=== PATIENT | male | born 1940 | race African-American/Black ===

== ENCOUNTER 2020-11-06 13:47 | Inpatient (IN) ==
[2020-11-06 14:47] LABS: ABG Base Excess -0.2 MMOL/L (-2.5-2.5); ABG Oxygen Saturation 86.6 % (95-100); ABG PCO2 44.7 MM HG (35-48); ABG PH 7.363 (7.35-7.45); ABG PO2 56.9 MM HG (80-95)
[2020-11-06 14:48] LABS: Hematocrit 34.7 VOL% (42.0-52.0); Hemoglobin 11.4 GM/DL (14.0-18.0); Immature Granulocytes % 0.4 %; Immature Granulocytes Absolute 0.03 #; Lymphocytes % 13.2 % (21.2-54.2); Mean Corpuscular HGB Conc 32.9 GM/DL (32-36); Mean Corpuscular Volume 97.7 FL (87-102); Mean Platelet Volume 10.7 FL (9.6-12.0); Monocytes % 5.1 % (1.7-12.7); NRBC # 0.06 10*3/uL; Neutrophils % 81.3 % (38.7-73.9); Platelet Count 178 T/CUMM (130-400); Red Blood Count 3.55 MC/CUMM (3.8-5.5); Red Cell Distribution Width 17.1 % (9.3-17.3); White Blood Count 7.8 T/CUMM (4-12)
[2020-11-06 15:09] LABS: Albumin 2.8 G/DL (3.4-5.0); Bilirubin,Total 4.3 MG/DL (0.2-1.0); Calcium 8.8 MG/DL (8.5-10.1); Osmolality,Calculated 291.4 MOS/KG (273-304); Potassium 5.6 MMOL/L (3.5-5.1); Total Protein 6.2 G/DL (6.4-8.3)
[2020-11-06 15:10] LABS: Atypical Lymphocytes Few; Lymphocytes 13 % (20-55); Macrocytosis 1+; Nucleated Red Blood Cells 2 (0-5); Segmented Neutrophils 82 % (50-85); Total Cells Counted 100
[2020-11-06 15:11] LABS: Platelet Estimate Normal
[2020-11-06 15:12] LABS: Howell-Jolly Bodies 1+; Hypochromasia Slight
[2020-11-06 15:13] LABS: Acanthocytes 2+; Polychromasia Slight; Schistocytes 1+
[2020-11-06 15:14] LABS: Anisocytosis 2+; Poikilocytosis 2+
[2020-11-06 15:33] LABS: Ferritin 1167.6 ng/ml (26-388)
[2020-11-06] MEDS ORDERED: AZITHROMYCIN INJ 500 MG in SODIUM CHLORIDE 0.9% 250 ML IV STA (15:56)
[2020-11-06] MEDS ORDERED: SODIUM CHLORIDE 0.9% 1,000 ML IV STA (15:56)
[2020-11-06] MEDS ORDERED: DEXAMETHASONE 4 MG/1 ML VIAL IV STA (15:57)
[2020-11-06] MEDS ORDERED: cefTRIAXone 1,000 MG in SODIUM CHLORIDE 0.9% 100 ML IV STA (15:57)
[2020-11-06] MEDS ORDERED: GLUCAGON 1 MG VIAL IM PRN (16:10)
[2020-11-06] MEDS ORDERED: DEXTROSE 50% 25 GM/50 ML VIAL IV PRN (16:10)
[2020-11-06] MEDS ORDERED: ONDANSETRON 4 MG/2 ML VIAL IV PRN (16:10)
[2020-11-06] MEDS ORDERED: ACETAMINOPHEN 325 MG TABLET PO PRN (16:10)
[2020-11-06] MEDS: SODIUM CHLORIDE 0.9% 1,000 ML IV SCH (17:40)
[2020-11-06] MEDS: DOCUSATE SODIUM 100 MG CAPSULE PO SCH ×2 (21:02→21:58)
[2020-11-06] MEDS: METOPROLOL TARTRATE 50 MG TABLET PO SCH (21:02)
[2020-11-06] MEDS: BENZONATATE 100 MG CAPSULE PO SCH (21:02)
[2020-11-06] MEDS: DEXAMETHASONE 4 MG/1 ML VIAL IV SCH (21:05)
[2020-11-06] MEDS: MORPHINE 4 MG/1 ML VIAL IV PRN (21:08)
[2020-11-07] MEDS: SODIUM CHLORIDE 0.9% 1,000 ML IV SCH ×4 (00:55→22:30)
[2020-11-07] MEDS: DEXAMETHASONE 4 MG/1 ML VIAL IV SCH ×4 (02:12→20:30)
[2020-11-07 05:24] LABS: Hematocrit 35.7 VOL% (42.0-52.0); Hemoglobin 11.4 GM/DL (14.0-18.0); Immature Granulocytes % 0.6 %; Immature Granulocytes Absolute 0.03 #; Lymphocytes # 0.8 10*3/uL (1.4-4.0); Lymphocytes % 14.6 % (21.2-54.2); Mean Corpuscular HGB Conc 31.9 GM/DL (32-36); Mean Corpuscular Volume 98.9 FL (87-102); Mean Platelet Volume 11.3 FL (9.6-12.0); Monocytes % 3.4 % (1.7-12.7); NRBC # 0.04 10*3/uL; Neutrophils % 81.4 % (38.7-73.9); Platelet Count 183 T/CUMM (130-400); Red Blood Count 3.61 MC/CUMM (3.8-5.5); Red Cell Distribution Width 17.5 % (9.3-17.3); White Blood Count 5.3 T/CUMM (4-12)
[2020-11-07 05:50] LABS: Band Neutrophils 2 % (0-10); Lymphocytes 14 % (20-55); Nucleated Red Blood Cells 1 (0-5); Platelet Estimate Normal; Segmented Neutrophils 82 % (50-85); Total Cells Counted 100
[2020-11-07 05:51] LABS: Howell-Jolly Bodies Few; Hypochromasia Slight
[2020-11-07 06:02] LABS: Albumin 2.3 G/DL (3.4-5.0); Bilirubin,Total 3.8 MG/DL (0.2-1.0); Calcium 8.9 MG/DL (8.5-10.1); Osmolality,Calculated 290.8 MOS/KG (273-304); Potassium 5.7 MMOL/L (3.5-5.1); Total Protein 6.4 G/DL (6.4-8.3)
[2020-11-07] MEDS: cefTRIAXone 500 MG in SYRINGE 1 EACH IV SCH (08:17)
[2020-11-07] MEDS: BENZONATATE 100 MG CAPSULE PO SCH ×3 (08:18→20:30)
[2020-11-07] MEDS: CLOPIDOGREL 75 MG TABLET PO SCH (08:18)
[2020-11-07] MEDS: ASPIRIN EC 81 MG TABLET PO SCH (08:18)
[2020-11-07] MEDS: DOCUSATE SODIUM 100 MG CAPSULE PO SCH ×3 (08:18→20:30)
[2020-11-07] MEDS: PANTOPRAZOLE 40 MG TABLET PO SCH (08:19)
[2020-11-07] MEDS: METOPROLOL TARTRATE 50 MG TABLET PO SCH (08:19)
[2020-11-07] MEDS: LORATADINE 10 MG TABLET PO SCH (08:19)
[2020-11-07] MEDS ORDERED: SODIUM POLYSTYRENE SULFATE 15 GM/60 ML BOTTLE PO STA (08:25)
[2020-11-07 10:53] LABS: Troponin I 0.153 NG/ML (0.00-0.045)
[2020-11-07] MEDS: ASCORBIC ACID 500 MG TABLET PO SCH (12:31)
[2020-11-07] MEDS: CHOLECALCIFEROL 1,000 UNIT TABLET PO SCH (12:31)
[2020-11-07] MEDS: ZINC GLUCONATE 50 MG TABLET PO SCH (12:31)
[2020-11-07] MEDS: azaTHIOprine 50 MG TABLET PO SCH (14:31)
[2020-11-07 17:22] LABS: Bilirubin,Urine Negative (Negative); Blood, Urine Small mg/dL (Negative); Glucose,Urine (UA) Negative (Negative); Ketones,Urine Negative (Negative); Mucus,Urine Occasional /LPF (Occasional); Nitrite,Urine Negative (Negative); Protein,Urine 100 MG/DL; RBC,Urine 2 /HPF (0-4); Squamous Epithelial Cell,Urine Occasional /HPF (0-10); Urine Appearance Slightly Hazy (Clear); Urine Color Amber (Yellow); Urine Specific Gravity 1.013 (1.001-1.035); WBC,Urine 3 /HPF (0-6)
[2020-11-07] MEDS: METOPROLOL SUCCINATE XL 50 MG TABLET PO SCH (20:30)
[2020-11-07] MEDS: LIDOCAINE 5% PATCH TRANSDERM SCH (20:30)
[2020-11-07] MEDS: ENOXAPARIN 80 MG/0.8 ML SYRINGE SUBCUT SCH (20:30)
[2020-11-07] MEDS: AZITHROMYCIN INJ 500 MG in SODIUM CHLORIDE 0.9% 250 ML IV SCH (20:32)
[2020-11-08] MEDS: SODIUM CHLORIDE 0.9% 1,000 ML IV SCH ×2 (02:27→13:10)
[2020-11-08] MEDS: DEXAMETHASONE 4 MG/1 ML VIAL IV SCH ×2 (02:28→09:03)
[2020-11-08 06:41] LABS: Hematocrit 32.4 VOL% (42.0-52.0); Hemoglobin 10.8 GM/DL (14.0-18.0); Immature Granulocytes % 0.6 %; Immature Granulocytes Absolute 0.06 #; Lymphocytes # 0.7 10*3/uL (1.4-4.0); Lymphocytes % 6.5 % (21.2-54.2); Mean Corpuscular HGB Conc 33.3 GM/DL (32-36); Mean Corpuscular Volume 97.6 FL (87-102); Mean Platelet Volume 10.9 FL (9.6-12.0); Monocytes % 3.3 % (1.7-12.7); NRBC # 0.11 10*3/uL; Neutrophils % 89.6 % (38.7-73.9); Platelet Count 204 T/CUMM (130-400); Red Blood Count 3.32 MC/CUMM (3.8-5.5); Red Cell Distribution Width 17.3 % (9.3-17.3); White Blood Count 10.4 T/CUMM (4-12)
[2020-11-08 07:05] LABS: Albumin 2.4 G/DL (3.4-5.0); Bilirubin,Total 4.9 MG/DL (0.2-1.0); Calcium 8.7 MG/DL (8.5-10.1); Osmolality,Calculated 301.1 MOS/KG (273-304); Total Protein 6.5 G/DL (6.4-8.3)
[2020-11-08] MEDS ORDERED: POLYVINYL ALCOHOL 1.4% OPH SOLN 15 ML BOTTLE BOTH EYES PRN (08:49)
[2020-11-08] MEDS ORDERED: ERGOCALCIFEROL 50,000 UNIT CAPSULE PO SCH (09:00)
[2020-11-08] MEDS: cefTRIAXone 500 MG in SYRINGE 1 EACH IV SCH (09:04)
[2020-11-08] MEDS: DOCUSATE SODIUM 100 MG CAPSULE PO SCH ×2 (09:05→20:29)
[2020-11-08] MEDS: METOPROLOL SUCCINATE XL 50 MG TABLET PO SCH ×2 (09:06→20:31)
[2020-11-08] MEDS: CLOPIDOGREL 75 MG TABLET PO SCH (09:06)
[2020-11-08] MEDS: CHOLECALCIFEROL 1,000 UNIT TABLET PO SCH (09:06)
[2020-11-08] MEDS: ASCORBIC ACID 500 MG TABLET PO SCH (09:06)
[2020-11-08] MEDS: ZINC GLUCONATE 50 MG TABLET PO SCH (09:06)
[2020-11-08] MEDS: ASPIRIN EC 81 MG TABLET PO SCH (09:06)
[2020-11-08] MEDS: PANTOPRAZOLE 40 MG TABLET PO SCH (09:07)
[2020-11-08] MEDS: BENZONATATE 100 MG CAPSULE PO SCH ×3 (09:07→20:29)
[2020-11-08] MEDS: azaTHIOprine 50 MG TABLET PO SCH (09:07)
[2020-11-08] MEDS: LORATADINE 10 MG TABLET PO SCH (09:07)
[2020-11-08] MEDS: LIDOCAINE 5% PATCH TRANSDERM SCH (09:08)
[2020-11-08 09:21] LABS: Band Neutrophils 3 % (0-10); Lymphocytes 5 % (20-55); Platelet Estimate Normal; Schistocytes Slight; Segmented Neutrophils 80 % (50-85); Total Cells Counted 100
[2020-11-08 09:23] LABS: Burr Cells Few
[2020-11-08 09:25] LABS: Acanthocytes 1+
[2020-11-08 11:43] LABS: Bilirubin,Direct 3.35 MG/DL (0.0-0.20); Bilirubin,Indirect 0.3 MG/DL (0.0-1.0); Bilirubin,Total 3.6 MG/DL (0.2-1.0)
[2020-11-08 13:06] LABS: Hepatitis B Core IgM Quant 0.11 Index; Hepatitis B Surface Ag Quant < 0.10 Index; Hepatitis B Surface Ag Result Negative (Negative); Hepatitis C Virus Ab Quant 0.09 Index; Hepatitis C Virus Ab Result Negative (Negative)
[2020-11-08] MEDS: AZITHROMYCIN INJ 500 MG in SODIUM CHLORIDE 0.9% 250 ML IV SCH (20:29)
[2020-11-08] MEDS: ENOXAPARIN 80 MG/0.8 ML SYRINGE SUBCUT SCH (20:29)
[2020-11-09] MEDS ORDERED: hydrALAZINE 20 MG/1 ML VIAL IV PRN (00:14)
[2020-11-09] MEDS: MORPHINE 4 MG/1 ML VIAL IV PRN (00:59)
[2020-11-09] MEDS: SODIUM CHLORIDE 0.9% 1,000 ML IV SCH ×3 (01:07→23:02)
[2020-11-09 06:46] LABS: Basophils % 0.1 % (0.0-0.8); Immature Granulocytes % 1.1 %; Lymphocytes # 0.9 10*3/uL (1.4-4.0); Lymphocytes % 9.6 % (21.2-54.2); Mean Corpuscular HGB Conc 32.4 GM/DL (32-36); Mean Platelet Volume 11.8 FL (9.6-12.0); Monocytes % 4.4 % (1.7-12.7); Neutrophils % 84.8 % (38.7-73.9); Platelet Count 229 T/CUMM (130-400); Red Cell Distribution Width 17.5 % (9.3-17.3); White Blood Count 9.3 T/CUMM (4-12)
[2020-11-09 07:21] LABS: Albumin 2.6 G/DL (3.4-5.0); Bilirubin,Total 4.6 MG/DL (0.2-1.0); Calcium 9.1 MG/DL (8.5-10.1); Osmolality,Calculated 298.8 MOS/KG (273-304); Potassium 4.9 MMOL/L (3.5-5.1); Total Protein 7.4 G/DL (6.4-8.3)
[2020-11-09 07:45] LABS: Troponin I 0.259 NG/ML (0.00-0.045)
[2020-11-09 07:51] LABS: Platelet Estimate Normal
[2020-11-09 07:52] LABS: Anisocytosis 3+; Burr Cells 2+; Poikilocytosis 2+
[2020-11-09 07:53] LABS: Macrocytosis 1+; Ovalocytes Few; Schistocytes Few; Spherocytes Few
[2020-11-09] MEDS: DOCUSATE SODIUM 100 MG CAPSULE PO SCH ×2 (09:07→23:02)
[2020-11-09] MEDS: LORATADINE 10 MG TABLET PO SCH (09:07)
[2020-11-09] MEDS: CLOPIDOGREL 75 MG TABLET PO SCH (09:08)
[2020-11-09] MEDS: azaTHIOprine 50 MG TABLET PO SCH (09:08)
[2020-11-09] MEDS: BENZONATATE 100 MG CAPSULE PO SCH ×3 (09:10→23:02)
[2020-11-09] MEDS: ASCORBIC ACID 500 MG TABLET PO SCH (09:10)
[2020-11-09] MEDS: amLODIPine 5 MG TABLET PO SCH (09:10)
[2020-11-09] MEDS: METOPROLOL SUCCINATE XL 50 MG TABLET PO SCH ×2 (09:10→23:02)
[2020-11-09] MEDS: LIDOCAINE 5% PATCH TRANSDERM SCH (10:03)
[2020-11-09] MEDS: ASPIRIN EC 81 MG TABLET PO SCH (10:03)
[2020-11-09] MEDS: PANTOPRAZOLE 40 MG TABLET PO SCH (10:04)
[2020-11-09] MEDS: CHOLECALCIFEROL 1,000 UNIT TABLET PO SCH (10:04)
[2020-11-09] MEDS: ZINC GLUCONATE 50 MG TABLET PO SCH (10:04)
[2020-11-09] MEDS: DEXAMETHASONE 4 MG/1 ML VIAL IV SCH (10:09)
[2020-11-09] MEDS: cefTRIAXone 500 MG in SYRINGE 1 EACH IV SCH (10:10)
[2020-11-09] MEDS: AZITHROMYCIN INJ 500 MG in SODIUM CHLORIDE 0.9% 250 ML IV SCH (23:00)
[2020-11-09] MEDS: ENOXAPARIN 80 MG/0.8 ML SYRINGE SUBCUT SCH (23:01)
[2020-11-10] MEDS: ZINC GLUCONATE 50 MG TABLET PO SCH (09:52)
[2020-11-10] MEDS: PANTOPRAZOLE 40 MG TABLET PO SCH (09:52)
[2020-11-10] MEDS: ASCORBIC ACID 500 MG TABLET PO SCH (09:52)
[2020-11-10] MEDS: CHOLECALCIFEROL 1,000 UNIT TABLET PO SCH (09:52)
[2020-11-10] MEDS: azaTHIOprine 50 MG TABLET PO SCH (09:52)
[2020-11-10] MEDS: CLOPIDOGREL 75 MG TABLET PO SCH (09:53)
[2020-11-10] MEDS: BENZONATATE 100 MG CAPSULE PO SCH ×3 (09:53→20:50)
[2020-11-10] MEDS: DEXAMETHASONE 4 MG/1 ML VIAL IV SCH (09:53)
[2020-11-10] MEDS: DOCUSATE SODIUM 100 MG CAPSULE PO SCH ×2 (09:53→20:50)
[2020-11-10] MEDS: LORATADINE 10 MG TABLET PO SCH (09:53)
[2020-11-10] MEDS: amLODIPine 5 MG TABLET PO SCH (09:53)
[2020-11-10] MEDS: METOPROLOL SUCCINATE XL 50 MG TABLET PO SCH ×2 (09:53→20:51)
[2020-11-10] MEDS: NYSTATIN 500,000 UNIT/5 ML UDCUP SWISH/SWAL SCH ×4 (09:53→20:51)
[2020-11-10] MEDS: cefTRIAXone 500 MG in SYRINGE 1 EACH IV SCH (09:56)
[2020-11-10] MEDS: ASPIRIN EC 81 MG TABLET PO SCH (09:57)
[2020-11-10] MEDS: LIDOCAINE 5% PATCH TRANSDERM SCH (09:57)
[2020-11-10 10:38] LABS: Potassium 4.9 MMOL/L (3.5-5.1)
[2020-11-10 10:40] LABS: Calcium 9.3 MG/DL (8.5-10.1)
[2020-11-10 10:42] LABS: Albumin 2.3 G/DL (3.4-5.0)
[2020-11-10 10:47] LABS: Bilirubin,Total 5.6 MG/DL (0.2-1.0); Total Protein 6.6 G/DL (6.4-8.3)
[2020-11-10] MEDS: AZITHROMYCIN INJ 500 MG in SODIUM CHLORIDE 0.9% 250 ML IV SCH (20:50)
[2020-11-10] MEDS: ENOXAPARIN 80 MG/0.8 ML SYRINGE SUBCUT SCH (20:51)
[2020-11-11 07:03] LABS: Albumin 2.1 G/DL (3.4-5.0); Bilirubin,Total 6.1 MG/DL (0.2-1.0); Calcium 9.2 MG/DL (8.5-10.1); Osmolality,Calculated 293.3 MOS/KG (273-304); Potassium 4.8 MMOL/L (3.5-5.1); Total Protein 6.3 G/DL (6.4-8.3)
[2020-11-11] MEDS: azaTHIOprine 50 MG TABLET PO SCH (08:53)
[2020-11-11] MEDS: DEXAMETHASONE 4 MG/1 ML VIAL IV SCH (08:53)
[2020-11-11] MEDS: DOCUSATE SODIUM 100 MG CAPSULE PO SCH ×2 (08:53→20:26)
[2020-11-11] MEDS: LORATADINE 10 MG TABLET PO SCH (08:53)
[2020-11-11] MEDS: ASPIRIN EC 81 MG TABLET PO SCH (08:53)
[2020-11-11] MEDS: NYSTATIN 500,000 UNIT/5 ML UDCUP SWISH/SWAL SCH ×4 (08:54→20:28)
[2020-11-11] MEDS: amLODIPine 10 MG TABLET PO SCH (08:54)
[2020-11-11] MEDS: PANTOPRAZOLE 40 MG TABLET PO SCH (08:55)
[2020-11-11] MEDS: METOPROLOL SUCCINATE XL 50 MG TABLET PO SCH ×2 (08:55→20:28)
[2020-11-11] MEDS: BENZONATATE 100 MG CAPSULE PO SCH ×3 (08:55→20:27)
[2020-11-11] MEDS: CLOPIDOGREL 75 MG TABLET PO SCH (08:55)
[2020-11-11] MEDS: cefTRIAXone 500 MG in SYRINGE 1 EACH IV SCH (08:55)
[2020-11-11] MEDS: CHOLECALCIFEROL 1,000 UNIT TABLET PO SCH (08:56)
[2020-11-11] MEDS: ASCORBIC ACID 500 MG TABLET PO SCH (08:56)
[2020-11-11] MEDS: ZINC GLUCONATE 50 MG TABLET PO SCH (08:56)
[2020-11-11] MEDS ORDERED: SODIUM CHLORIDE 0.9% 1,000 ML IV PRN ×2 (09:44→09:52)
[2020-11-11] MEDS: LIDOCAINE 5% PATCH TRANSDERM SCH (10:53)
[2020-11-11] MEDS: SODIUM CHLORIDE 0.9% 1,000 ML IV SCH ×2 (15:59→16:00)
[2020-11-11] MEDS: ENOXAPARIN 80 MG/0.8 ML SYRINGE SUBCUT SCH (20:27)
[2020-11-11] MEDS: AZITHROMYCIN INJ 500 MG in SODIUM CHLORIDE 0.9% 250 ML IV SCH (20:28)
[2020-11-12 05:15] LABS: Eosinophils % 0.2 % (0.00-10.9); Hematocrit 32.9 VOL% (42.0-52.0); Immature Granulocytes % 0.5 %; Immature Granulocytes Absolute 0.03 #; Lymphocytes # 0.8 10*3/uL (1.4-4.0); Lymphocytes % 12.3 % (21.2-54.2); Mean Corpuscular HGB Conc 33.4 GM/DL (32-36); Mean Corpuscular Volume 95.6 FL (87-102); Mean Platelet Volume 11.4 FL (9.6-12.0); Monocytes % 6.8 % (1.7-12.7); NRBC # 0.06 10*3/uL; Neutrophils % 80.2 % (38.7-73.9); Platelet Count 250 T/CUMM (130-400); Red Blood Count 3.44 MC/CUMM (3.8-5.5); Red Cell Distribution Width 16.8 % (9.3-17.3); White Blood Count 6.2 T/CUMM (4-12)
[2020-11-12 05:55] LABS: Calcium 9.4 MG/DL (8.5-10.1); Osmolality,Calculated 289.3 MOS/KG (273-304); Potassium 4.4 MMOL/L (3.5-5.1)
[2020-11-12 06:06] LABS: % Iron Saturation 33.8 % (18-50); Ferritin 932.2 ng/ml (26-388)
[2020-11-12] MEDS: LIDOCAINE 5% PATCH TRANSDERM SCH (08:34)
[2020-11-12] MEDS: cefTRIAXone 500 MG in SYRINGE 1 EACH IV SCH (08:35)
[2020-11-12] MEDS: ZINC GLUCONATE 50 MG TABLET PO SCH (08:36)
[2020-11-12] MEDS: METOPROLOL SUCCINATE XL 50 MG TABLET PO SCH ×2 (08:36→21:39)
[2020-11-12] MEDS: DEXAMETHASONE 4 MG/1 ML VIAL IV SCH (08:36)
[2020-11-12] MEDS: LORATADINE 10 MG TABLET PO SCH (08:37)
[2020-11-12] MEDS: CHOLECALCIFEROL 1,000 UNIT TABLET PO SCH (08:37)
[2020-11-12] MEDS: NYSTATIN 500,000 UNIT/5 ML UDCUP SWISH/SWAL SCH ×4 (08:37→21:39)
[2020-11-12] MEDS: DOCUSATE SODIUM 100 MG CAPSULE PO SCH ×2 (08:37→21:38)
[2020-11-12] MEDS: ASPIRIN EC 81 MG TABLET PO SCH (08:37)
[2020-11-12] MEDS: CLOPIDOGREL 75 MG TABLET PO SCH (08:37)
[2020-11-12] MEDS: ASCORBIC ACID 500 MG TABLET PO SCH (08:37)
[2020-11-12] MEDS: azaTHIOprine 50 MG TABLET PO SCH (08:37)
[2020-11-12] MEDS: BENZONATATE 100 MG CAPSULE PO SCH ×3 (08:37→21:39)
[2020-11-12] MEDS: amLODIPine 10 MG TABLET PO SCH (08:37)
[2020-11-12] MEDS: PANTOPRAZOLE 40 MG TABLET PO SCH (08:37)
[2020-11-12] MEDS: ENOXAPARIN 80 MG/0.8 ML SYRINGE SUBCUT SCH (21:39)
[2020-11-12] MEDS: AZITHROMYCIN INJ 500 MG in SODIUM CHLORIDE 0.9% 250 ML IV SCH (21:39)
[2020-11-13 06:53] LABS: Calcium 9.3 MG/DL (8.5-10.1); Osmolality,Calculated 287.3 MOS/KG (273-304); Potassium 4.1 MMOL/L (3.5-5.1)
[2020-11-13] MEDS: cefTRIAXone 500 MG in SYRINGE 1 EACH IV SCH (08:11)
[2020-11-13] MEDS: LORATADINE 10 MG TABLET PO SCH (08:11)
[2020-11-13] MEDS: CLOPIDOGREL 75 MG TABLET PO SCH (08:11)
[2020-11-13] MEDS: DEXAMETHASONE 4 MG/1 ML VIAL IV SCH (08:11)
[2020-11-13] MEDS: ASCORBIC ACID 500 MG TABLET PO SCH (08:12)
[2020-11-13] MEDS: ASPIRIN EC 81 MG TABLET PO SCH (08:12)
[2020-11-13] MEDS: amLODIPine 10 MG TABLET PO SCH (08:12)
[2020-11-13] MEDS: azaTHIOprine 50 MG TABLET PO SCH (08:12)
[2020-11-13] MEDS: DOCUSATE SODIUM 100 MG CAPSULE PO SCH ×2 (08:12→20:29)
[2020-11-13] MEDS: PANTOPRAZOLE 40 MG TABLET PO SCH (08:12)
[2020-11-13] MEDS: NYSTATIN 500,000 UNIT/5 ML UDCUP SWISH/SWAL SCH ×4 (08:12→20:29)
[2020-11-13] MEDS: BENZONATATE 100 MG CAPSULE PO SCH ×3 (08:12→20:29)
[2020-11-13] MEDS: CHOLECALCIFEROL 1,000 UNIT TABLET PO SCH (08:12)
[2020-11-13] MEDS: ZINC GLUCONATE 50 MG TABLET PO SCH (08:12)
[2020-11-13] MEDS: METOPROLOL SUCCINATE XL 50 MG TABLET PO SCH ×2 (08:13→20:29)
[2020-11-13] MEDS: LIDOCAINE 5% PATCH TRANSDERM SCH (08:15)
[2020-11-13] MEDS: SODIUM CHLORIDE 0.9% 1,000 ML IV SCH (13:07)
[2020-11-13 13:33] LABS: Bacteria,Urine Occasional /HPF (Few); Bilirubin,Urine Negative (Negative); Blood, Urine Small mg/dL (Negative); Glucose,Urine (UA) Negative (Negative); Ketones,Urine Negative (Negative); Mucus,Urine Occasional /LPF (Occasional); Nitrite,Urine Negative (Negative); Protein,Urine 100 MG/DL; RBC,Urine <1 /HPF (0-4); Squamous Epithelial Cell,Urine Occasional /HPF (0-10); Urine Appearance CLEAR (Clear); Urine Color Amber (Yellow); Urine Specific Gravity 1.014 (1.001-1.035)
[2020-11-13] MEDS: AZITHROMYCIN INJ 500 MG in SODIUM CHLORIDE 0.9% 250 ML IV SCH (20:29)
[2020-11-13] MEDS: ENOXAPARIN 80 MG/0.8 ML SYRINGE SUBCUT SCH (20:29)
[2020-11-13] MEDS: hydrALAZINE 20 MG/1 ML VIAL IV PRN (20:30)
[2020-11-14] MEDS: hydrALAZINE 20 MG/1 ML VIAL IV PRN ×2 (05:16→20:35)
[2020-11-14 06:36] LABS: Calcium 9.6 MG/DL (8.5-10.1); Osmolality,Calculated 289.1 MOS/KG (273-304)
[2020-11-14 06:41] LABS: Albumin 2.3 G/DL (3.4-5.0); Bilirubin,Direct 5.6 MG/DL (0.0-0.20); Bilirubin,Indirect 1.1 MG/DL (0.0-1.0); Bilirubin,Total 6.7 MG/DL (0.2-1.0); Total Protein 5.9 G/DL (6.4-8.3)
[2020-11-14] MEDS: CHOLECALCIFEROL 1,000 UNIT TABLET PO SCH (08:09)
[2020-11-14] MEDS: ZINC GLUCONATE 50 MG TABLET PO SCH (08:09)
[2020-11-14] MEDS: METOPROLOL SUCCINATE XL 50 MG TABLET PO SCH ×2 (08:10→20:34)
[2020-11-14] MEDS: LORATADINE 10 MG TABLET PO SCH (08:10)
[2020-11-14] MEDS: ASCORBIC ACID 500 MG TABLET PO SCH (08:10)
[2020-11-14] MEDS: amLODIPine 10 MG TABLET PO SCH (08:10)
[2020-11-14] MEDS: BENZONATATE 100 MG CAPSULE PO SCH ×3 (08:10→20:33)
[2020-11-14] MEDS: DOCUSATE SODIUM 100 MG CAPSULE PO SCH ×2 (08:10→20:33)
[2020-11-14] MEDS: NYSTATIN 500,000 UNIT/5 ML UDCUP SWISH/SWAL SCH ×4 (08:10→20:33)
[2020-11-14] MEDS: ASPIRIN EC 81 MG TABLET PO SCH (08:11)
[2020-11-14] MEDS: DEXAMETHASONE 4 MG/1 ML VIAL IV SCH (08:11)
[2020-11-14] MEDS: azaTHIOprine 50 MG TABLET PO SCH (08:11)
[2020-11-14] MEDS: CLOPIDOGREL 75 MG TABLET PO SCH (08:11)
[2020-11-14] MEDS: cefTRIAXone 500 MG in SYRINGE 1 EACH IV SCH (08:11)
[2020-11-14] MEDS: LIDOCAINE 5% PATCH TRANSDERM SCH (08:12)
[2020-11-14] MEDS: PANTOPRAZOLE 40 MG TABLET PO SCH (08:14)
[2020-11-14] MEDS: SODIUM CHLORIDE 0.9% 1,000 ML IV SCH (14:43)
[2020-11-14] MEDS: ENOXAPARIN 80 MG/0.8 ML SYRINGE SUBCUT SCH (20:33)
[2020-11-14] MEDS: AZITHROMYCIN INJ 500 MG in SODIUM CHLORIDE 0.9% 250 ML IV SCH (20:34)
[2020-11-14] MEDS ORDERED: ALPRAZolam 0.25 MG TABLET PO PRN (20:35)
[2020-11-15 06:02] LABS: Basophils % 0.1 % (0.0-0.8); Eosinophils % 0.4 % (0.00-10.9); Hemoglobin 9.8 GM/DL (14.0-18.0); Immature Granulocytes % 0.7 %; Immature Granulocytes Absolute 0.06 #; Lymphocytes # 1.2 10*3/uL (1.4-4.0); Lymphocytes % 12.9 % (21.2-54.2); Mean Corpuscular HGB Conc 33.8 GM/DL (32-36); Mean Corpuscular Volume 93.9 FL (87-102); Mean Platelet Volume 11.2 FL (9.6-12.0); Monocytes % 5.6 % (1.7-12.7); NRBC # 0.07 10*3/uL; Neutrophils % 80.3 % (38.7-73.9); Platelet Count 333 T/CUMM (130-400); Red Blood Count 3.09 MC/CUMM (3.8-5.5); Red Cell Distribution Width 16.6 % (9.3-17.3); White Blood Count 9.1 T/CUMM (4-12)
[2020-11-15] MEDS: ASPIRIN EC 81 MG TABLET PO SCH (09:54)
[2020-11-15] MEDS: DEXAMETHASONE 4 MG/1 ML VIAL IV SCH (09:54)
[2020-11-15] MEDS: CHOLECALCIFEROL 1,000 UNIT TABLET PO SCH (09:54)
[2020-11-15] MEDS: DOCUSATE SODIUM 100 MG CAPSULE PO SCH ×2 (09:55→20:29)
[2020-11-15] MEDS: azaTHIOprine 50 MG TABLET PO SCH (09:55)
[2020-11-15] MEDS: ZINC GLUCONATE 50 MG TABLET PO SCH (09:55)
[2020-11-15] MEDS: LORATADINE 10 MG TABLET PO SCH (09:55)
[2020-11-15] MEDS: BENZONATATE 100 MG CAPSULE PO SCH ×3 (09:55→20:28)
[2020-11-15] MEDS: CLOPIDOGREL 75 MG TABLET PO SCH (09:55)
[2020-11-15] MEDS: ASCORBIC ACID 500 MG TABLET PO SCH (09:55)
[2020-11-15] MEDS: amLODIPine 10 MG TABLET PO SCH (09:56)
[2020-11-15] MEDS: METOPROLOL SUCCINATE XL 50 MG TABLET PO SCH ×2 (09:56→20:28)
[2020-11-15] MEDS: NYSTATIN 500,000 UNIT/5 ML UDCUP SWISH/SWAL SCH ×4 (09:57→20:28)
[2020-11-15] MEDS: LIDOCAINE 5% PATCH TRANSDERM SCH (09:57)
[2020-11-15] MEDS: PANTOPRAZOLE 40 MG TABLET PO SCH (09:58)
[2020-11-15] MEDS: SODIUM CHLORIDE 0.9% 1,000 ML IV SCH ×2 (15:08→20:28)
[2020-11-15] MEDS: ENOXAPARIN 80 MG/0.8 ML SYRINGE SUBCUT SCH (20:29)
[2020-11-16 06:29] LABS: Albumin 2.2 G/DL (3.4-5.0); Bilirubin,Total 5.6 MG/DL (0.2-1.0); Calcium 9.8 MG/DL (8.5-10.1); Potassium 4.1 MMOL/L (3.5-5.1); Total Protein 6.6 G/DL (6.4-8.3)
[2020-11-16] MEDS ORDERED: TUBERCULIN SKIN TEST 0.1 ML SYRINGE INTRADERM ONE (09:16)
[2020-11-16] MEDS: BENZONATATE 100 MG CAPSULE PO SCH ×3 (10:39→21:26)
[2020-11-16] MEDS: LIDOCAINE 5% PATCH TRANSDERM SCH (10:39)
[2020-11-16] MEDS: PANTOPRAZOLE 40 MG TABLET PO SCH (10:39)
[2020-11-16] MEDS: CHOLECALCIFEROL 1,000 UNIT TABLET PO SCH (10:39)
[2020-11-16] MEDS: DOCUSATE SODIUM 100 MG CAPSULE PO SCH ×2 (10:40→21:26)
[2020-11-16] MEDS: ASCORBIC ACID 500 MG TABLET PO SCH (10:40)
[2020-11-16] MEDS: METOPROLOL SUCCINATE XL 50 MG TABLET PO SCH ×2 (10:40→21:27)
[2020-11-16] MEDS: azaTHIOprine 50 MG TABLET PO SCH (10:40)
[2020-11-16] MEDS: ZINC GLUCONATE 50 MG TABLET PO SCH (10:41)
[2020-11-16] MEDS: NYSTATIN 500,000 UNIT/5 ML UDCUP SWISH/SWAL SCH ×4 (10:41→21:27)
[2020-11-16] MEDS: ASPIRIN EC 81 MG TABLET PO SCH (10:41)
[2020-11-16] MEDS: CLOPIDOGREL 75 MG TABLET PO SCH (10:41)
[2020-11-16] MEDS: amLODIPine 10 MG TABLET PO SCH (10:41)
[2020-11-16] MEDS: DEXAMETHASONE 4 MG/1 ML VIAL IV SCH (10:42)
[2020-11-16] MEDS: LORATADINE 10 MG TABLET PO SCH (10:42)
[2020-11-16] MEDS: SODIUM CHLORIDE 0.9% 1,000 ML IV SCH (13:30)
[2020-11-16] MEDS: ENOXAPARIN 80 MG/0.8 ML SYRINGE SUBCUT SCH (21:27)
[2020-11-17 05:07] LABS: Basophils % 0.1 % (0.0-0.8); Hematocrit 30.3 VOL% (42.0-52.0); Hemoglobin 9.9 GM/DL (14.0-18.0); Immature Granulocytes % 0.4 %; Immature Granulocytes Absolute 0.05 #; Lymphocytes # 1.1 10*3/uL (1.4-4.0); Lymphocytes % 9.4 % (21.2-54.2); Mean Corpuscular HGB Conc 32.7 GM/DL (32-36); Mean Corpuscular Volume 98.4 FL (87-102); Mean Platelet Volume 11.1 FL (9.6-12.0); Monocytes % 6.6 % (1.7-12.7); NRBC # 0.06 10*3/uL; Neutrophils % 83.5 % (38.7-73.9); Platelet Count 305 T/CUMM (130-400); Red Blood Count 3.08 MC/CUMM (3.8-5.5); Red Cell Distribution Width 17.1 % (9.3-17.3); White Blood Count 11.4 T/CUMM (4-12)
[2020-11-17 05:46] LABS: Calcium 9.6 MG/DL (8.5-10.1); Osmolality,Calculated 288.4 MOS/KG (273-304)
[2020-11-17] MEDS: ASPIRIN EC 81 MG TABLET PO SCH (08:06)
[2020-11-17] MEDS: LORATADINE 10 MG TABLET PO SCH (08:07)
[2020-11-17] MEDS: DOCUSATE SODIUM 100 MG CAPSULE PO SCH ×2 (08:07→21:30)
[2020-11-17] MEDS: DEXAMETHASONE 4 MG/1 ML VIAL IV SCH (08:07)
[2020-11-17] MEDS: LIDOCAINE 5% PATCH TRANSDERM SCH (08:07)
[2020-11-17] MEDS: azaTHIOprine 50 MG TABLET PO SCH (08:07)
[2020-11-17] MEDS: PANTOPRAZOLE 40 MG TABLET PO SCH (08:08)
[2020-11-17] MEDS: NYSTATIN 500,000 UNIT/5 ML UDCUP SWISH/SWAL SCH ×4 (08:08→21:30)
[2020-11-17] MEDS: CLOPIDOGREL 75 MG TABLET PO SCH (08:08)
[2020-11-17] MEDS: amLODIPine 10 MG TABLET PO SCH (08:08)
[2020-11-17] MEDS: BENZONATATE 100 MG CAPSULE PO SCH ×3 (08:09→21:30)
[2020-11-17] MEDS: CHOLECALCIFEROL 1,000 UNIT TABLET PO SCH (08:09)
[2020-11-17] MEDS: METOPROLOL SUCCINATE XL 50 MG TABLET PO SCH ×2 (08:09→21:30)
[2020-11-17] MEDS: ASCORBIC ACID 500 MG TABLET PO SCH (08:09)
[2020-11-17] MEDS: ZINC GLUCONATE 50 MG TABLET PO SCH (08:09)
[2020-11-17] MEDS: ENOXAPARIN 40 MG/0.4 ML SYRINGE SUBCUT SCH (09:23)
[2020-11-17] MEDS: FLUCONAZOLE 100 MG TABLET PO SCH (09:23)
[2020-11-17] MEDS: SODIUM CHLORIDE 0.9% 1,000 ML IV SCH (13:59)
[2020-11-18] MEDS: ASPIRIN EC 81 MG TABLET PO SCH (08:07)
[2020-11-18] MEDS: LORATADINE 10 MG TABLET PO SCH (08:07)
[2020-11-18] MEDS: DOCUSATE SODIUM 100 MG CAPSULE PO SCH ×2 (08:07→20:21)
[2020-11-18] MEDS: DEXAMETHASONE 4 MG/1 ML VIAL IV SCH (08:07)
[2020-11-18] MEDS: LIDOCAINE 5% PATCH TRANSDERM SCH (08:08)
[2020-11-18] MEDS: azaTHIOprine 50 MG TABLET PO SCH (08:08)
[2020-11-18] MEDS: ENOXAPARIN 40 MG/0.4 ML SYRINGE SUBCUT SCH (08:08)
[2020-11-18] MEDS: FLUCONAZOLE 100 MG TABLET PO SCH (08:08)
[2020-11-18] MEDS: BENZONATATE 100 MG CAPSULE PO SCH ×3 (08:09→20:22)
[2020-11-18] MEDS: CLOPIDOGREL 75 MG TABLET PO SCH (08:09)
[2020-11-18] MEDS: PANTOPRAZOLE 40 MG TABLET PO SCH (08:09)
[2020-11-18] MEDS: METOPROLOL SUCCINATE XL 50 MG TABLET PO SCH ×2 (08:09→20:22)
[2020-11-18] MEDS: amLODIPine 10 MG TABLET PO SCH (08:09)
[2020-11-18] MEDS: NYSTATIN 500,000 UNIT/5 ML UDCUP SWISH/SWAL SCH ×4 (08:09→20:21)
[2020-11-18] MEDS: ZINC GLUCONATE 50 MG TABLET PO SCH (08:10)
[2020-11-18] MEDS: ASCORBIC ACID 500 MG TABLET PO SCH (08:10)
[2020-11-18] MEDS: CHOLECALCIFEROL 1,000 UNIT TABLET PO SCH (08:10)
[2020-11-18] MEDS: SODIUM CHLORIDE 0.9% 1,000 ML IV SCH (13:56)
[2020-11-19 06:12] LABS: Hematocrit 26.4 VOL% (42.0-52.0); Hemoglobin 8.6 GM/DL (14.0-18.0); Immature Granulocytes % 0.9 %; Immature Granulocytes Absolute 0.09 #; Lymphocytes # 0.8 10*3/uL (1.4-4.0); Lymphocytes % 8.1 % (21.2-54.2); Mean Corpuscular HGB Conc 32.6 GM/DL (32-36); Mean Corpuscular Volume 98.1 FL (87-102); Mean Platelet Volume 10.9 FL (9.6-12.0); NRBC # 0.06 10*3/uL; Platelet Count 273 T/CUMM (130-400); Red Blood Count 2.69 MC/CUMM (3.8-5.5); Red Cell Distribution Width 17.5 % (9.3-17.3); White Blood Count 9.6 T/CUMM (4-12)
[2020-11-19] MEDS ORDERED: TUBERCULIN SKIN TEST 0.1 ML SYRINGE INTRADERM ONE (06:24)
[2020-11-19 06:25] LABS: Osmolality,Calculated 288.3 MOS/KG (273-304); Potassium 4.5 MMOL/L (3.5-5.1)
[2020-11-19] MEDS: BENZONATATE 100 MG CAPSULE PO SCH ×3 (09:42→21:35)
[2020-11-19] MEDS: FLUCONAZOLE 100 MG TABLET PO SCH (09:42)
[2020-11-19] MEDS: ENOXAPARIN 40 MG/0.4 ML SYRINGE SUBCUT SCH (09:42)
[2020-11-19] MEDS: ASCORBIC ACID 500 MG TABLET PO SCH (09:42)
[2020-11-19] MEDS: NYSTATIN 500,000 UNIT/5 ML UDCUP SWISH/SWAL SCH ×4 (09:42→21:35)
[2020-11-19] MEDS: ASPIRIN EC 81 MG TABLET PO SCH (09:42)
[2020-11-19] MEDS: METOPROLOL SUCCINATE XL 50 MG TABLET PO SCH ×2 (09:42→21:35)
[2020-11-19] MEDS: amLODIPine 10 MG TABLET PO SCH (09:42)
[2020-11-19] MEDS: azaTHIOprine 50 MG TABLET PO SCH (09:42)
[2020-11-19] MEDS: LIDOCAINE 5% PATCH TRANSDERM SCH (09:42)
[2020-11-19] MEDS: DOCUSATE SODIUM 100 MG CAPSULE PO SCH ×2 (09:42→21:35)
[2020-11-19] MEDS: DEXAMETHASONE 4 MG/1 ML VIAL IV SCH (09:42)
[2020-11-19] MEDS: LORATADINE 10 MG TABLET PO SCH (09:42)
[2020-11-19] MEDS: ZINC GLUCONATE 50 MG TABLET PO SCH (09:42)
[2020-11-19] MEDS: CHOLECALCIFEROL 1,000 UNIT TABLET PO SCH (09:42)
[2020-11-19] MEDS: PANTOPRAZOLE 40 MG TABLET PO SCH (09:42)
[2020-11-19] MEDS: CLOPIDOGREL 75 MG TABLET PO SCH (09:42)
[2020-11-19] MEDS: SODIUM CHLORIDE 0.9% 1,000 ML IV SCH (12:13)
[2020-11-20] MEDS: BENZONATATE 100 MG CAPSULE PO SCH ×3 (10:10→21:10)
[2020-11-20] MEDS: METOPROLOL SUCCINATE XL 50 MG TABLET PO SCH ×2 (10:10→21:10)
[2020-11-20] MEDS: CHOLECALCIFEROL 1,000 UNIT TABLET PO SCH (10:11)
[2020-11-20] MEDS: ZINC GLUCONATE 50 MG TABLET PO SCH (10:11)
[2020-11-20] MEDS: DOCUSATE SODIUM 100 MG CAPSULE PO SCH ×2 (10:11→21:10)
[2020-11-20] MEDS: amLODIPine 10 MG TABLET PO SCH (10:11)
[2020-11-20] MEDS: ASCORBIC ACID 500 MG TABLET PO SCH (10:11)
[2020-11-20] MEDS: ASPIRIN EC 81 MG TABLET PO SCH (10:11)
[2020-11-20] MEDS: CLOPIDOGREL 75 MG TABLET PO SCH (10:11)
[2020-11-20] MEDS: LORATADINE 10 MG TABLET PO SCH (10:12)
[2020-11-20] MEDS: FLUCONAZOLE 100 MG TABLET PO SCH (10:12)
[2020-11-20] MEDS: PANTOPRAZOLE 40 MG TABLET PO SCH (10:12)
[2020-11-20] MEDS: azaTHIOprine 50 MG TABLET PO SCH (10:12)
[2020-11-20] MEDS: NYSTATIN 500,000 UNIT/5 ML UDCUP SWISH/SWAL SCH ×4 (10:13→21:10)
[2020-11-20] MEDS: DEXAMETHASONE 4 MG/1 ML VIAL IV SCH (10:14)
[2020-11-20] MEDS: LIDOCAINE 5% PATCH TRANSDERM SCH (10:14)
[2020-11-20] MEDS: ENOXAPARIN 40 MG/0.4 ML SYRINGE SUBCUT SCH (10:15)
[2020-11-20] MEDS: SODIUM CHLORIDE 0.9% 1,000 ML IV SCH (21:10)
[2020-11-21] MEDS: ASCORBIC ACID 500 MG TABLET PO SCH (09:06)
[2020-11-21] MEDS: LIDOCAINE 5% PATCH TRANSDERM SCH (09:06)
[2020-11-21] MEDS: azaTHIOprine 50 MG TABLET PO SCH (09:07)
[2020-11-21] MEDS: METOPROLOL SUCCINATE XL 50 MG TABLET PO SCH ×2 (09:07→21:36)
[2020-11-21] MEDS: amLODIPine 10 MG TABLET PO SCH (09:08)
[2020-11-21] MEDS: DOCUSATE SODIUM 100 MG CAPSULE PO SCH ×2 (09:08→21:36)
[2020-11-21] MEDS: BENZONATATE 100 MG CAPSULE PO SCH ×3 (09:08→21:36)
[2020-11-21] MEDS: ASPIRIN EC 81 MG TABLET PO SCH (09:08)
[2020-11-21] MEDS: CHOLECALCIFEROL 1,000 UNIT TABLET PO SCH (09:08)
[2020-11-21] MEDS: ZINC GLUCONATE 50 MG TABLET PO SCH (09:09)
[2020-11-21] MEDS: FLUCONAZOLE 100 MG TABLET PO SCH (09:09)
[2020-11-21] MEDS: CLOPIDOGREL 75 MG TABLET PO SCH (09:09)
[2020-11-21] MEDS: LORATADINE 10 MG TABLET PO SCH (09:09)
[2020-11-21] MEDS: PANTOPRAZOLE 40 MG TABLET PO SCH (09:09)
[2020-11-21] MEDS: NYSTATIN 500,000 UNIT/5 ML UDCUP SWISH/SWAL SCH ×4 (09:09→21:36)
[2020-11-21] MEDS: ENOXAPARIN 40 MG/0.4 ML SYRINGE SUBCUT SCH (09:10)
[2020-11-21] MEDS: DEXAMETHASONE 4 MG/1 ML VIAL IV SCH (09:11)
[2020-11-21] MEDS: SODIUM CHLORIDE 0.9% 1,000 ML IV SCH (13:45)
[2020-11-22 05:21] LABS: Basophils % 0.1 % (0.0-0.8); Eosinophils % 0.1 % (0.00-10.9); Hematocrit 32.5 VOL% (42.0-52.0); Hemoglobin 10.6 GM/DL (14.0-18.0); Immature Granulocytes % 1.4 %; Immature Granulocytes Absolute 0.18 #; Lymphocytes # 1.3 10*3/uL (1.4-4.0); Lymphocytes % 10.5 % (21.2-54.2); Mean Corpuscular HGB Conc 32.6 GM/DL (32-36); Mean Corpuscular Volume 98.8 FL (87-102); Mean Platelet Volume 10.6 FL (9.6-12.0); Monocytes % 6.3 % (1.7-12.7); NRBC # 0.15 10*3/uL; Neutrophils % 81.6 % (38.7-73.9); Platelet Count 304 T/CUMM (130-400); Red Blood Count 3.29 MC/CUMM (3.8-5.5); Red Cell Distribution Width 18.8 % (9.3-17.3); White Blood Count 12.4 T/CUMM (4-12)
[2020-11-22 07:51] LABS: Calcium 9.8 MG/DL (8.5-10.1); Potassium 5.6 MMOL/L (3.5-5.1)
[2020-11-22] MEDS ORDERED: DEXAMETHASONE 4 MG TABLET PO SCH (09:00)
[2020-11-22] MEDS: ENOXAPARIN 40 MG/0.4 ML SYRINGE SUBCUT SCH (09:13)
[2020-11-22] MEDS: amLODIPine 10 MG TABLET PO SCH (09:13)
[2020-11-22] MEDS: PANTOPRAZOLE 40 MG TABLET PO SCH (09:14)
[2020-11-22] MEDS: CHOLECALCIFEROL 1,000 UNIT TABLET PO SCH (09:14)
[2020-11-22] MEDS: ASPIRIN EC 81 MG TABLET PO SCH (09:14)
[2020-11-22] MEDS: CLOPIDOGREL 75 MG TABLET PO SCH (09:14)
[2020-11-22] MEDS: ZINC GLUCONATE 50 MG TABLET PO SCH (09:14)
[2020-11-22] MEDS: DOCUSATE SODIUM 100 MG CAPSULE PO SCH (09:14)
[2020-11-22] MEDS: METOPROLOL SUCCINATE XL 50 MG TABLET PO SCH (09:15)
[2020-11-22] MEDS: ASCORBIC ACID 500 MG TABLET PO SCH (09:15)
[2020-11-22] MEDS: BENZONATATE 100 MG CAPSULE PO SCH (09:16)
[2020-11-22] MEDS: LORATADINE 10 MG TABLET PO SCH (09:16)
[2020-11-22] MEDS: NYSTATIN 500,000 UNIT/5 ML UDCUP SWISH/SWAL SCH (09:16)
[2020-11-22] MEDS: LIDOCAINE 5% PATCH TRANSDERM SCH (09:17)
[2020-11-22 11:23] VITALS: BP 128/66
== END 2020-11-22 15:40 | DRG 177 ==
LOC: N.ED 13:47 → N.EDINP 16:10 → N.2E 17:29
PROVIDERS: ADMIT Internal Medicine; ATTEND Internal Medicine

== ENCOUNTER 2021-05-17 13:27 | Inpatient (IN) ==
[2021-05-17] MEDS ORDERED: ACETAMINOPHEN 325 MG TABLET PO PRN (17:05)
[2021-05-17] MEDS ORDERED: ONDANSETRON 4 MG/2 ML VIAL IV PRN (17:05)
[2021-05-17] MEDS ORDERED: MORPHINE 4 MG/1 ML VIAL IV PRN (17:24)
[2021-05-17] MEDS ORDERED: VANCOMYCIN INJ 750 MG in SODIUM CHLORIDE 0.9% 250 ML IV SCH (17:30)
[2021-05-17] MEDS: SODIUM CHLORIDE 0.9% 1,000 ML IV SCH (17:58)
[2021-05-17] MEDS: HYDROCORTISONE 100 MG VIAL IV SCH (17:59)
[2021-05-17 18:31] LABS: Calcium 8.4 MG/DL (8.5-10.1); Osmolality,Calculated 285.3 MOS/KG (273-304); Potassium 4.3 MMOL/L (3.5-5.1)
[2021-05-17] MEDS: MEROPENEM 500 MG in SODIUM CHLORIDE 0.9% 100 ML IV SCH (19:25)
[2021-05-17] MEDS: ENOXAPARIN 40 MG/0.4 ML SYRINGE SUBCUT SCH (19:27)
[2021-05-17] MEDS: VANCOMYCIN INJ 1,500 MG in SODIUM CHLORIDE 0.9% 500 ML IV SCH (20:49)
[2021-05-17] MEDS: DOCUSATE SODIUM 100 MG CAPSULE PO SCH (20:50)
[2021-05-18] MEDS: MEROPENEM 500 MG in SODIUM CHLORIDE 0.9% 100 ML IV SCH ×4 (01:24→20:12)
[2021-05-18] MEDS: SODIUM CHLORIDE 0.9% 1,000 ML IV SCH ×3 (01:24→10:01)
[2021-05-18] MEDS: HYDROCORTISONE 100 MG VIAL IV SCH (04:50)
[2021-05-18 05:18] LABS: Basophils % 0.1 % (0.0-0.8); Hematocrit 30.1 VOL% (42.0-52.0); Hemoglobin 9.7 GM/DL (14.0-18.0); Immature Granulocytes Absolute 0.15 #; Lymphocytes # 1.2 10*3/uL (1.4-4.0); Lymphocytes % 7.9 % (21.2-54.2); Mean Corpuscular HGB Conc 32.2 GM/DL (32-36); Mean Corpuscular Volume 96.8 FL (87-102); Mean Platelet Volume 11.6 FL (9.6-12.0); Monocytes % 7.3 % (1.7-12.7); NRBC # 0.03 10*3/uL; Neutrophils % 83.7 % (38.7-73.9); Platelet Count 129 T/CUMM (130-400); Red Blood Count 3.11 MC/CUMM (3.8-5.5); Red Cell Distribution Width 17.8 % (9.3-17.3); White Blood Count 15.3 T/CUMM (4-12)
[2021-05-18 05:39] LABS: Calcium 8.3 MG/DL (8.5-10.1); Osmolality,Calculated 289.1 MOS/KG (273-304); Potassium 4.6 MMOL/L (3.5-5.1)
[2021-05-18 05:45] LABS: Albumin 2.1 G/DL (3.4-5.0); Bilirubin,Direct 2.51 MG/DL (0.0-0.20); Bilirubin,Indirect 0.9 MG/DL (0.0-1.0); Bilirubin,Total 3.4 MG/DL (0.2-1.0)
[2021-05-18] MEDS: CLOPIDOGREL 75 MG TABLET PO SCH (09:19)
[2021-05-18] MEDS: PANTOPRAZOLE 40 MG TABLET PO SCH (09:19)
[2021-05-18] MEDS: DOCUSATE SODIUM 100 MG CAPSULE PO SCH ×2 (09:19→20:52)
[2021-05-18] MEDS: azaTHIOprine 50 MG TABLET PO SCH (09:19)
[2021-05-18] MEDS ORDERED: predniSONE 10 MG TABLET PO SCH (09:30)
[2021-05-18] MEDS: VANCOMYCIN INJ 1,500 MG in SODIUM CHLORIDE 0.9% 500 ML IV SCH ×2 (10:19→20:52)
[2021-05-18] MEDS ORDERED: Glycopyrrolate-Formoterol [Bevespi Aerosphere] 9-4.8 mcg Hfa Aer INH PRN (12:30)
[2021-05-18] MEDS ORDERED: TRIAMCINOLONE 0.1% CREAM 15 GM TUBE TOP PRN (12:30)
[2021-05-18] MEDS ORDERED: ERGOCALCIFEROL 50,000 UNIT CAPSULE PO SCH (12:30)
[2021-05-18] MEDS ORDERED: DICLOFENAC 1% GEL 100 GM TUBE TOP PRN (12:30)
[2021-05-18] MEDS ORDERED: LIDOCAINE 5% PATCH TRANSDERM PRN (12:30)
[2021-05-18] MEDS ORDERED: traMADol 50 MG TABLET PO PRN (12:30)
[2021-05-18] MEDS: LORATADINE 10 MG TABLET PO SCH (14:15)
[2021-05-18] MEDS: ENOXAPARIN 40 MG/0.4 ML SYRINGE SUBCUT SCH (18:25)
[2021-05-18] MEDS: METOPROLOL SUCCINATE XL 100 MG TABLET PO SCH (20:52)
[2021-05-18] MEDS: METHOCARBAMOL 750 MG TABLET PO SCH (20:52)
[2021-05-18] MEDS: GABAPENTIN 300 MG CAPSULE PO SCH (20:52)
[2021-05-18] MEDS: AMITRIPTYLINE 25 MG TABLET PO SCH (20:52)
[2021-05-18] MEDS: LINACLOTIDE 145 MCG CAPSULE PO SCH (20:52)
[2021-05-18] MEDS ORDERED: NON-FORMULARY MEDICATION (Omeprazole 20 MG capsule,delayed release(DR/EC)) PO SCH (21:00)
[2021-05-19] MEDS: MEROPENEM 500 MG in SODIUM CHLORIDE 0.9% 100 ML IV SCH ×4 (01:45→20:00)
[2021-05-19 05:28] LABS: Eosinophils % 0.4 % (0.00-10.9); Hematocrit 27.1 VOL% (42.0-52.0); Hemoglobin 8.9 GM/DL (14.0-18.0); Immature Granulocytes Absolute 0.11 #; Lymphocytes # 1.8 10*3/uL (1.4-4.0); Lymphocytes % 16.4 % (21.2-54.2); Mean Corpuscular HGB Conc 32.8 GM/DL (32-36); Mean Corpuscular Volume 96.8 FL (87-102); Mean Platelet Volume 11.1 FL (9.6-12.0); Monocytes % 10.9 % (1.7-12.7); NRBC # 0.04 10*3/uL; Neutrophils % 71.3 % (38.7-73.9); Platelet Count 134 T/CUMM (130-400); Red Cell Distribution Width 17.4 % (9.3-17.3); White Blood Count 10.9 T/CUMM (4-12)
[2021-05-19 05:44] LABS: Calcium 7.9 MG/DL (8.5-10.1); Osmolality,Calculated 297.6 MOS/KG (273-304); Potassium 4.1 MMOL/L (3.5-5.1)
[2021-05-19] MEDS: SODIUM CHLORIDE 0.9% 1,000 ML IV SCH ×2 (06:47→11:10)
[2021-05-19] MEDS: METOPROLOL SUCCINATE XL 100 MG TABLET PO SCH ×2 (08:00→20:51)
[2021-05-19] MEDS: LORATADINE 10 MG TABLET PO SCH (08:00)
[2021-05-19] MEDS: ASPIRIN EC 81 MG TABLET PO SCH (08:00)
[2021-05-19] MEDS: DUTASTERIDE 0.5 MG CAPSULE PO SCH (08:01)
[2021-05-19] MEDS: CLOPIDOGREL 75 MG TABLET PO SCH (08:01)
[2021-05-19] MEDS: azaTHIOprine 50 MG TABLET PO SCH (08:01)
[2021-05-19] MEDS: DOCUSATE SODIUM 100 MG CAPSULE PO SCH ×2 (08:01→20:51)
[2021-05-19] MEDS: predniSONE 5 MG TABLET PO SCH (08:01)
[2021-05-19] MEDS: ATORVASTATIN 80 MG TABLET PO SCH (08:01)
[2021-05-19] MEDS: PANTOPRAZOLE 40 MG TABLET PO SCH (08:01)
[2021-05-19] MEDS: TAMSULOSIN 0.4 MG CAPSULE PO SCH (08:01)
[2021-05-19] MEDS: VALSARTAN 160 MG TABLET PO SCH (08:01)
[2021-05-19] MEDS: CALCIUM (CARBONATE)/VITAMIN D 600 MG-400 UNIT TABLET PO SCH (08:07)
[2021-05-19] MEDS: VANCOMYCIN INJ 1,500 MG in SODIUM CHLORIDE 0.9% 500 ML IV SCH ×2 (09:06→20:50)
[2021-05-19] MEDS: ENOXAPARIN 40 MG/0.4 ML SYRINGE SUBCUT SCH (18:02)
[2021-05-19] MEDS: AMITRIPTYLINE 25 MG TABLET PO SCH (20:51)
[2021-05-19] MEDS: LINACLOTIDE 145 MCG CAPSULE PO SCH (20:51)
[2021-05-19] MEDS: GABAPENTIN 300 MG CAPSULE PO SCH (20:51)
[2021-05-19] MEDS: METHOCARBAMOL 750 MG TABLET PO SCH (20:51)
[2021-05-20] MEDS: SODIUM CHLORIDE 0.9% 1,000 ML IV SCH (01:53)
[2021-05-20] MEDS: MEROPENEM 500 MG in SODIUM CHLORIDE 0.9% 100 ML IV SCH ×2 (02:10→08:01)
[2021-05-20 05:45] LABS: Eosinophils # 0.1 10*3/uL (0.0-0.87); Eosinophils % 0.7 % (0.00-10.9); Hematocrit 29.4 VOL% (42.0-52.0); Hemoglobin 9.4 GM/DL (14.0-18.0); Immature Granulocytes % 1.1 %; Immature Granulocytes Absolute 0.13 #; Lymphocytes # 1.6 10*3/uL (1.4-4.0); Lymphocytes % 13.1 % (21.2-54.2); Mean Corpuscular Volume 99.7 FL (87-102); Mean Platelet Volume 11.2 FL (9.6-12.0); Monocytes % 11.1 % (1.7-12.7); NRBC # 0.06 10*3/uL; Platelet Count 168 T/CUMM (130-400); Red Blood Count 2.95 MC/CUMM (3.8-5.5); Red Cell Distribution Width 17.5 % (9.3-17.3); White Blood Count 12.3 T/CUMM (4-12)
[2021-05-20 06:26] LABS: Calcium 8.2 MG/DL (8.5-10.1); Osmolality,Calculated 298.6 MOS/KG (273-304); Potassium 4.8 MMOL/L (3.5-5.1)
[2021-05-20] MEDS: predniSONE 5 MG TABLET PO SCH (08:03)
[2021-05-20] MEDS: CALCIUM (CARBONATE)/VITAMIN D 600 MG-400 UNIT TABLET PO SCH (08:03)
[2021-05-20] MEDS: DOCUSATE SODIUM 100 MG CAPSULE PO SCH (08:03)
[2021-05-20] MEDS: METOPROLOL SUCCINATE XL 100 MG TABLET PO SCH (08:03)
[2021-05-20] MEDS: ATORVASTATIN 80 MG TABLET PO SCH (08:03)
[2021-05-20] MEDS: VALSARTAN 160 MG TABLET PO SCH (08:03)
[2021-05-20] MEDS: TAMSULOSIN 0.4 MG CAPSULE PO SCH (08:03)
[2021-05-20] MEDS: CLOPIDOGREL 75 MG TABLET PO SCH (08:03)
[2021-05-20] MEDS: LORATADINE 10 MG TABLET PO SCH (08:03)
[2021-05-20] MEDS: ASPIRIN EC 81 MG TABLET PO SCH (08:03)
[2021-05-20] MEDS: azaTHIOprine 50 MG TABLET PO SCH (08:03)
[2021-05-20] MEDS: DUTASTERIDE 0.5 MG CAPSULE PO SCH (08:03)
[2021-05-20] MEDS: PANTOPRAZOLE 40 MG TABLET PO SCH (08:04)
[2021-05-20] MEDS ORDERED: CEFUROXIME 500 MG TABLET PO SCH (09:00)
[2021-05-20 11:08] VITALS: BP 154/73
== END 2021-05-20 11:00 | disposition swing bed (61) | DRG 605 ==
LOC: N.3E 16:22
PROVIDERS: ADMIT Internal Medicine; ATTEND Internal Medicine